=== PATIENT | male | born 1990 | race Caucasian/White ===

== ENCOUNTER 2019-11-12 13:19 | Outpatient (CLI) | payer SELFPAY ==
[~2019-11-12 13:19] MED LIST: KETO10TA PO; NF-SKEL800 PO
== END 2019-11-12 13:55 | disposition home or self-care (01) ==
LOC: SLEEP 13:19
PROVIDERS: ATTEND Nurse Practitioner
DX: G47.33 Obstructive sleep apnea (adult) (pediatric) (principal)